=== PATIENT | male | born 1960 | race Caucasian/White ===

== ENCOUNTER 2022-11-12 06:23 | Day surgery (SDC) | payer BC ==
[2022-11-10 15:25] VITALS: BMI 28.8
[~2022-11-12 06:23] MED LIST: LACTATED RINGERS 1,000 ML IV SCH
[2022-11-12 06:47] VITALS: TEMP 97.3
[2022-11-12] MEDS ORDERED: PROPOFOL 10 MG/ML 20 ML VIAL IV ONE (07:23)
[2022-11-12] MEDS ORDERED: LIDOCAINE 2% INJ 20 MG/ML (2 ML VIAL) ONE (07:23)
--- NOTE | 2022-11-12 07:49 | P.PCN ---
Date of Procedure: 11/12/22 Procedure(s) Performed: Brief history: Patient is a pleasant 62-year-old white male scheduled for an elective upper endoscopy as well as colonoscopy as a part of evaluation of GERD/intermittent dysphagia to solids for the last 7 years duration. Intermittent episodes of dysphagia especially with meat the last episode was 6 weeks ago lasting 2 hours. Recently was started on Protonix 40 mg daily and symptoms are significantly improved. Scheduled for screening colonoscopy today. He has prior history of c olon polyps. Procedure performed: Esophagogastroduodenoscopy with dilation Colonoscopy Preoperative diagnosis: GERD/intermittent dysphagia to solids History of colon polyps Anesthesia: MAC Procedure: After informed consent was obtained from the patient was brought into the endoscopy unit and IV sedation was administered by anesthesia under continuous monitoring. Initially upper endoscopy was done. The Olympus GF 160 video endoscope was inserted inserted into the mouth and esophagus intubated without any difficulty and was gradually advanced into the stomach and duodenum and carefully examined. The bulb and second part of the duodenum appeared normal. The scope was then withdrawn into the stomach adequately insufflated with air and upon careful examination the antrum and body, cardia and fundus appeared normal. The scope was then withdrawn into the esophagus. Small sliding-type well hernia noted. The GE junction was located at 40 cm to the incisors. There was a distal esophageal stricture identified and this was dilated using 15-18 mm TTS balloon in a sequential fashion for 60 seconds. It appeared regular with no erythema erosions or ulcerations. Rest of the esophagus appeared normal. Patient tolerated the procedure well. At this time the patient continued to remain sedation. Initial digital rectal examination was normal. Olympus CF 160 video colonoscope was then inserted into the rectum and gradually advanced to the cecum without any difficulty. Careful examination was performed as the scope was gradually being withdrawn. The prep was excellent. The cecum, ascending colon, transverse colon, descending colon, sigmoid colon and rectum appeared normal. Retroflexion was performed in the rectum and no lesions were noted. Patient tolerated the procedure well. Impression: 1. Upper endoscopy revealed distal esophageal stricture status post balloon dilation using 15-18 mm TTS balloon as described above and small hiatal hernia 2. Colonoscopy was within normal limits with no evidence of colorectal neoplasia Recommendations: Findings of this examination were discussed with the patient as well as his family. He was advised to be on a clear liquid diet for lunch today. Continue with Protonix 40 mg daily and follow antireflux measures. Recommend repeat colonoscopy in 5 years from now because of the prior history of colon polyps
[2022-11-12 08:09] VITALS: BP 110/65; PULSE 72; RESP 16
== END 2022-11-12 08:29 | disposition home or self-care (01) ==
LOC: ORWHC2ENDO 06:23
PROVIDERS: ATTEND Internal Medicine Gastroenterology
DX: Z12.11 Encounter for screening for malignant neoplasm of colon (principal); K22.2 Esophageal obstruction; K44.9 Diaphragmatic hernia without obstruction or gangrene; K21.9 Gastro-esophageal reflux disease without esophagitis; R13.19 Other dysphagia; I10 Essential (primary) hypertension; F17.210 Nicotine dependence, cigarettes, uncomplicated; E07.9 Disorder of thyroid, unspecified; Z98.890 Other specified postprocedural states; Z79.899 Other long term (current) drug therapy; Z86.010 Personal history of colon polyps
CPT/HCPCS: 45378; 43249; J2704; J2001

== ENCOUNTER → 2023-06-14 | Outpatient (CLI) | payer MEDICARE ==
--- NOTE | 2023-06-14 09:56 | US ---
EXAMINATION TYPE: US Aorta Screening DATE OF EXAM: 06/14/2023 COMPARISON: NONE CLINICAL INDICATION: Male, 63 years old with history of Z13.6 SCREEN FOR CARDIOVASCULAR DISORDER; Scr eening AAA TECHNIQUE: Multiple sonographic images of the abdominal aorta are obtained. FINDINGS: EXAM MEASUREMENTS: Abdominal Aorta: Proximal: 2.0 x 2.0 cm Mid: 1.8 x 2.0 cm Distal: 1.7 x 1.9 cm Bifurcation: SHARLA: 1.2 x 1.2 cm JATIN: 1.4 x 1.5 cm SUPERVISOR BAKING NOTES: No evidence of AAA No abdominal aortic aneurysm. Atherosclerotic calcification of the aorta. IMPRESSION: No ultrasound evidence for abdominal aortic aneurysm.
== END | disposition home or self-care (01) ==
LOC: RADUSWWP 08:19
PROVIDERS: ATTEND Family Medicine
DX: Z13.6 Encounter for screening for cardiovascular disorders (principal)
CPT/HCPCS: 76706

== ENCOUNTER → 2023-10-04 | Outpatient (CLI) | payer MEDICARE ==
--- NOTE | 2023-10-04 11:12 | XR ---
EXAMINATION TYPE: XR shoulder complete RT DATE OF EXAM: 10/04/2023 10:22 AM CLINICAL INDICATION:Male, 63 years old with history of M25.511 Pain rt shoulder; PH[facility] COMPARISON: None TECHNIQUE: XR shoulder complete RT; shoulder was examined in AP, internally rotated and scapular Y p rojections. FINDINGS: No evidence of acute osseous pathology, joint dislocation, or soft tissue swelling. The remaining po rtions of the visualized chest are unremarkable. Mild degeneration changes are from clavicular joint with osteophyte formation. IMPRESSION: No acute osseous pathology.
== END | disposition home or self-care (01) ==
LOC: RADXRMAIN 10:02
PROVIDERS: ATTEND Family Medicine
DX: M25.511 Pain in right shoulder (principal)

== ENCOUNTER → 2024-03-13 | Outpatient (CLI) | payer MEDICARE ==
--- NOTE | 2024-03-13 10:50 | XR ---
EXAMINATION TYPE: XR Hip Bilateral and AP pelvis DATE OF EXAM: 03/13/2024 10:44 AM CLINICAL INDICATION:Male, 64 years old with history of M24.811 joint derangement; PHH COMPARISON: None. TECHNIQUE: XR Hip Bilateral and AP pelvis; hip was examined in the frontal and lateral projections an d a AP pelvis. FINDINGS: No evidence for acute process, joint dislocation or significant soft tissue swelling. Osteo phyte formation of the superior acetabulum of the hip. There is mild joint space narrowing. IMPRESSION: 1. No evidence for acute process. 2. Mild hip osteoarthrosis.
== END | disposition home or self-care (01) ==
LOC: RADXRMAIN 10:06
PROVIDERS: ATTEND Family Medicine
DX: M24.811 Other specific joint derangements of right shoulder, not elsewhere classified (principal); M24.9 Joint derangement, unspecified
CPT/HCPCS: 73521

== ENCOUNTER → 2024-04-06 | Outpatient (CLI) | payer MEDICARE ==
--- NOTE | 2024-04-10 11:52 | MR ---
EXAMINATION TYPE: MR shoulder RT wo con DATE OF EXAM: 04/06/2024 COMPARISON: Right shoulder x-ray October 04, 2023 HISTORY: Rt shoulder pain x8 months - painful to raise arm over head TECHNIQUE: Multiplanar, multisequence imaging of the right shoulder is performed without contrast. FINDINGS: Rotator Cuff: Some increased signal in the supraspinatus and to slightly greater degree infraspinatus tendons. Some adjacent and intramuscular fluid or edema is noted. Intact subscapularis tendon. Rotat or cuff muscle bulk preserved. Acromioclavicular Joint: Mild to moderate narrowing with subchondral cystic change and moderate capsu lar hypertrophy. Loss of underlying fat plane. Glenohumeral Joint: Small to moderate size joint effusion. Narrowing is seen. No significant spurring . Subchondral cystic change involving the posterior aspect of the osseous glenoid Labrum: Increased signal consistent with tear involving the superior labrum. Biceps Tendon: The long head of biceps is in normal location within bicipital groove. Heterogeneous i ncreased signal intracapsular portion long head of biceps tendon. Bone marrow signal: No focal abnormal marrow signal is appreciated. Other: No additional significant abnormality is appreciated. IMPRESSION: 1. Tendinosis/partial tearing of the supraspinatus and infraspinatus tendons. 2. Superior labral tear. 3. At least moderate degenerative changes are present as detailed above.
== END | disposition home or self-care (01) ==
LOC: RADMRIMAIN 06:07
PROVIDERS: ATTEND Family Medicine
DX: M19.011 Primary osteoarthritis, right shoulder (principal); M24.811 Other specific joint derangements of right shoulder, not elsewhere classified; M75.101 Unspecified rotator cuff tear or rupture of right shoulder, not specified as traumatic

== ENCOUNTER → 2025-06-04 | Outpatient (CLI) | payer MEDICARE ==
--- NOTE | 2025-06-04 09:06 | XR ---
EXAMINATION TYPE: XR lumbar spine 3V DATE OF EXAM: 06/04/2025 9:01 AM COMPARISON: None CLINICAL INDICATION: Male, 65 years old with history of R20.0 ANESTHESIA OF SKIN; PHH, pain FINDINGS: Cholecystectomy clips. Moderate degenerative disc disease throughout. Moderate facet arthropathy thro ughout. Degenerative grade 1 retrolisthesis L2-L3, L3-L4, and L4-L5. Remaining alignment is maintaine d. Vertebral body heights are preserved. IMPRESSION: 1. Moderate degenerative disc disease and facet arthropathy throughout. 2. Degenerative grade 1 retrolisthesis L2-L3, L3-L4, and L4-L5. 3. No vertebral compression collapse. [facility], , 06/04/2025 9:04 AM
--- NOTE | 2025-06-04 11:58 | CTL ---
EXAMINATION TYPE: CT Low Dose Lung DATE OF EXAM: 06/04/2025 9:08 AM COMPARISON: None. CLINICAL INDICATION: Male, 65 years old with history of Z87.891 HX OF TOBACCO USE, , History of tobac co use. Current smoker with 30 pack-year history TECHNIQUE: Low dose computed tomography scan was performed through the chest at 1 mm thick sections a nd reconstructed images in multiple planes at 1 mm and [address] DLP: 125.0 mGycm Automated exposure control for dose reduction was used. CT DIAGNOSTIC QUALITY: Satisfactory FINDINGS: Heart normal size without pericardial effusion. Mild circumflex and RCA coronary artery calcification s. Ectatic ascending aorta 3.9 cm. 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 Trace bilateral gynecomastia. No thoracic lymph adenopathy by CT size criteria. Mild diffuse bronchial wall thickening. Mild emphysematous change. No consolidation or pleural effusi on. A couple 3 mm right mid lung pulmonary nodules, axial image 154 and 158. No suspicious pulmonary nodu les are seen. Visualized upper abdomen shows cholecystectomy clips and low attenuation of the hepatic parenchyma co mpatible with fatty infiltration. Bones: No osseous destructive process. IMPRESSION: 1. Lung-RADS 2, benign. A couple 3 mm right mid lung pulmonary nodules on baseline screening. 2. COPD with mild emphysema. 3. Hepatic steatosis. Appropriate clinical management is advised. CT LUNG RAD AND CT CHEST RECOMMENDATION: Lung-Rad 2 Benign Appearance or Behavior: Continue annual sc reening with LDCT in 12 months. S Modifier (other clinically significant findings): None [facility], , 06/04/2025 11:56 AM
== END | disposition home or self-care (01) ==
LOC: RADCTMAIN 08:32
PROVIDERS: ATTEND Family Medicine
DX: Z12.2 Encounter for screening for malignant neoplasm of respiratory organs (principal); M47.816 Spondylosis without myelopathy or radiculopathy, lumbar region; M43.16 Spondylolisthesis, lumbar region; R91.8 Other nonspecific abnormal finding of lung field; Z87.891 Personal history of nicotine dependence; R20.0 Anesthesia of skin; K76.0 Fatty (change of) liver, not elsewhere classified; J43.9 Emphysema, unspecified
CPT/HCPCS: 71271; 72100